=== PATIENT | female | born 1945 | race Two or more races ===

== ENCOUNTER 2023-02-06 05:02 | Emergency (ER) | payer OTHER ==
[~2023-02-06] VITALS: Ht 149.9 cm; Wt 52.6 kg
[2023-02-06] MEDS ORDERED: GLUMETZA500 MG PO (05:10)
[2023-02-06] MEDS ORDERED: LIPITOR40 MG PO (05:10)
[2023-02-06] MEDS ORDERED: CHILDREN'S ASPI81 MG PO (05:10)
== END 2023-02-06 07:49 | disposition home or self-care (01) ==
LOC: ER 05:03
DX: K30 Functional dyspepsia (principal)
CPT/HCPCS: 96372; 99284; J2405; J2765; J3490